=== PATIENT | male | born 1965 | race Caucasian/White ===

== ENCOUNTER 2020-10-09 14:23 | Outpatient (CLI) | payer OTHER, SELFPAY | END 2020-10-09 14:24 | disposition home or self-care (01) | LOC: ANHAUDIO 14:25 | PROVIDERS: PCP Emergency Medicine; Visit Provider Emergency Medicine | DX: H90.3 Sensorineural hearing loss, bilateral (principal) | CPT/HCPCS: 92557; 92567 ==

== ENCOUNTER 2020-11-18 13:31 | Outpatient (RCR) | payer OTHER, SELFPAY | END 2020-11-18 23:59 | disposition home or self-care (01) | LOC: ANHAUDIO 13:31 | PROVIDERS: PCP Emergency Medicine; Visit Provider Emergency Medicine | DX: Z46.1 Encounter for fitting and adjustment of hearing aid (principal) | CPT/HCPCS: V5160; V5261 ==

== ENCOUNTER 2021-05-27 15:18 | Outpatient (CLI) | payer OTHER, SELFPAY ==
--- NOTE | ~2021-05-27 | MR_ITS ---
EXAMINATION: MR lumbar spine wo con EXAM DATE: 05/27/2021 16:06 INDICATION: M54.9 - Dorsalgia, unspecified . TECHNIQUE: Multi-sequential, multiplanar MR images of the lumbar spine were obtained without contrast . Sagittal T1, T2, T2 fat saturation images. Axial T2 weighted images. Comparison is made to prior examination from 03/03/2019. FINDINGS: There is mild lumbar dextroscoliosis. The conus medullaris terminates at the L1/2 level and has normal signal intensity and morphology. Moderate diffuse thoracolumbar disc disease. There is 5 mm retrolisthesis L5 on S1. No spondylolysis. Paraspinal soft tissue is unremarkable. Some scattered vertebral body hemangiomata. Level by level evaluation: T12-L1: There is a mild to moderate diffuse disc bulge. Facet arthropathy: Mild. Neural foraminal stenosis: No stenosis. Central canal stenosis: No stenosis. L1-L2: There is a mild diffuse disc bulge. Facet arthropathy: Mild. Neural foraminal stenosis: Mild left. Central canal stenosis: No stenosis. L2-L3: There is a moderate diffuse disc bulge. Facet arthropathy: Mild to moderate. Neural foraminal stenosis: Mild to moderate left, mild right. Central canal stenosis: Mild to moderate. L3-L4: There is a moderate diffuse disc bulge. Facet arthropathy: Mild to moderate. Neural foraminal stenosis: Mild to moderate left, mild right. Central canal stenosis: Mild to moderate. L4-L5: There is a moderate to large diffuse disc bulge. Facet arthropathy: Moderate . Ligamentum flavum enlargement. Neural foraminal stenosis: Moderate bilateral. Central canal stenosis: Moderate to severe. L5-S1: There is a moderate diffuse disc bulge. Facet arthropathy: Mild to moderate. Neural foraminal stenosis: Moderate to severe right, moderate left. Central canal stenosis: Mild to moderate. Right lateral recess narrowing. Progression in the central canal stenosis at L4-5 and other degenerative changes. IMPRESSION: 1. L4-5 moderate to severe central canal stenosis. 2. Spondylosis as detailed above. 3. Mild dextroscoliosis. Reviewed, dictated and finalized at location A. ENT OUTREACH COORDINATOR
== END 2021-05-27 15:19 | disposition home or self-care (01) ==
LOC: ANHIMG 15:26
PROVIDERS: PCP Emergency Medicine; Visit Provider Emergency Medicine
DX: M47.816 Spondylosis without myelopathy or radiculopathy, lumbar region (principal); M54.9 Dorsalgia, unspecified; M48.00 Spinal stenosis, site unspecified; M48.061 Spinal stenosis, lumbar region without neurogenic claudication; M41.86 Other forms of scoliosis, lumbar region
CPT/HCPCS: 72148